=== PATIENT | female | born 1930 | race Caucasian/White ===

== ENCOUNTER 2019-11-17 15:03 | Emergency (ER) | payer MEDICARE ==
[~2019-11-17] VITALS: Ht 162.6 cm; Wt 84.8 kg
--- NOTE | 2019-11-17 15:03 | NUR ---
Patient BIBA BLS, transferred to bed 8. RN evaluating patient at bedside.
--- NOTE | 2019-11-17 15:06 | NUR ---
88 YRS OLD FEMALE AAO X3 BIBA C/O INCREASED HEART RATE 120 BPM ACCOMPANIED BY INTERMITTENT CHEST PAIN. HX OF HEART ATTACK ON 2002, 2 ST[address]ED, BILIARY CIRRHOSIS, HTN, HIGH CHOLESTEROL. BED IN LOWEST POSITION, SIDE RAIL UP X1. WILL CONTINUE TO MONITOR.
[2019-11-17 15:09] VITALS: BP 160/70
--- NOTE | 2019-11-17 15:09 | NUR ---
DR. CANSECO EVALUATING PT AT BEDSIDE.
--- NOTE | 2019-11-17 15:22 | NUR ---
XRAY AT BEDSIDE.
--- NOTE | 2019-11-17 15:30 | NUR ---
FLU SWAB OBTAINED.
[2019-11-17 15:47] LABS: BASOPHILS # (AUTO) 0.1 K/uL (0.00-0.22); BASOPHILS % (AUTO) 0.9 % (0.0-2.0); EOSINOPHILS # (AUTO) 0.2 K/uL (0-0.4); HEMATOCRIT 35.8 % (36-48); HEMOGLOBIN 11.9 g/dL (12.0-16.0); LYMPHOCYTES # (AUTO) 2.3 K/uL (2.5-16.5); LYMPHOCYTES % (AUTO) 26.8 % (20.5-51.1); MEAN CORPUSCULAR HEMOGLOBIN 31 pg (27-31); MEAN CORPUSCULAR HGB CONC 33 g/dL (33-37); MEAN CORPUSCULAR VOLUME 92.8 fL (80-94); MONOCYTES # (AUTO) 0.6 K/uL (0.8-1.0); MONOCYTES % (AUTO) 6.6 % (1.7-9.3); NEUTROPHILS # (AUTO) 5.5 K/uL (1.8-7.7); NEUTROPHILS % (AUTO) 63.7 % (42.2-75.2); PLATELET COUNT (AUTO) 215 K/uL (140-450); RED BLOOD CELL COUNT(AUTO) 3.86 MIL/uL (4.20-5.40); RED CELL DISTRIBUTION WIDTH 13.3 % (11.6-13.7); WHITE BLOOD COUNT (AUTO) 8.6 K/uL (4.8-10.8)
--- NOTE | 2019-11-17 16:04 | NUR ---
Dr. Lam is evaluating the patient at bedside.
[2019-11-17 16:08] LABS: ALBUMIN 3.6 g/dL (3.4-5.0); ASPARTATE AMINOTRANSFERASE 24 U/L (15-37); CHLORIDE 102 mmol/L (98-107); CREATININE 1.3 mg/dL (0.6-1.3); GLUCOSE 129 mg/dL (74-106); SODIUM SERUM 137 mmol/L (136-145); TOTAL BILIRUBIN 0.2 mg/dL (0.0-1.0); UREA NITROGEN, BLOOD 22 mg/dL (7-18)
--- NOTE | 2019-11-17 16:30 | NUR ---
PT RESTING IN BED, FAMILY AT BEDSIDE, BED IN LOWEST POSITION, SIDE RAIL UP X1.
--- NOTE | 2019-11-17 17:01 | NUR ---
PT RESTING IN BED, SIDE RAIL X1
[2019-11-17 17:16] VITALS: BP 146/59
--- NOTE | 2019-11-17 17:17 | NUR ---
Patient discharged with v/s stable. Written and verbal after care instructions given and explained. Patient verbalized understanding. Ambulatory with steady gait. All questions addressed prior to discharge. Advised to follow up with PMD.
== END 2019-11-17 17:17 | disposition home or self-care (01) ==
LOC: MED 15:03
DX: R00.2 Palpitations (principal); R11.10 Vomiting, unspecified; K21.9 Gastro-esophageal reflux disease without esophagitis; I10 Essential (primary) hypertension; E03.9 Hypothyroidism, unspecified; I25.2 Old myocardial infarction; Z88.2 Allergy status to sulfonamides
CPT/HCPCS: 36415; 71045; 80053; 83880; 84443; 84484; 85025; 87804; 93005; 99285; Q0092